=== PATIENT | female | born 1980 | race Caucasian/White ===

== ENCOUNTER → 2017-12-23 | Outpatient (CLI) | payer OTHER ==
--- NOTE | 2017-12-24 15:32 | US ---
EXAMINATION TYPE: US pelvis complete transvag DATE OF EXAM: 12/24/2017 COMPARISON: NONE CLINICAL HISTORY: N93.9 Abnormal uterine Bleeding. Patient states she had been bleeding consistently for about 1 month. TECHNIQUE: . Transabdominal sonographic images of the pelvis were acquired. Transvaginal sonographi c images were medically necessary to better assess the following anatomy: Endometrium and ovaries Date of LMP: 12/11/2017 EXAM MEASUREMENTS: Uterus: 8.5 x 4.2 x 4.9 cm Endometrial Stripe: 0.9 cm Right Ovary: 2.8 x 1.4 x 1.6 cm Left Ovary: 3.6 x 2.3 x 2.0 cm 1. Uterus: Anteverted Nabothian cyst visualized in cervix. Heterogeneous myometrium 2. Endometrium: Appears slightly heterogeneous 3. Right Ovary: Follicle visualized measuring 1.2 x 0.9 x 1.4 cm. Echogenic foci visualized measurin g 0.2 cm 4. Left Ovary: Complex area visualized measuring 1.8 x 1.3 x 1.8 cm. Follicle visualized measuring 1 .8 x 1.1 x 1.2 cm 5. Bilateral Adnexa: wnl 6. Posterior cul-de-sac: Tiny amount of free fluid visualized IMPRESSION: 1. Complex left ovarian lesion may reflect a hemorrhagic cyst. Consider follow-up study in 6 weeks. 2. Nonspecific heterogeneity uterine myometrial and endometrial lesions.
== END | disposition home or self-care (01) ==
LOC: RADUSWWP 14:50
PROVIDERS: ATTEND Family Medicine
DX: N83.8 Other noninflammatory disorders of ovary, fallopian tube and broad ligament (principal); N85.8 Other specified noninflammatory disorders of uterus; N93.9 Abnormal uterine and vaginal bleeding, unspecified
CPT/HCPCS: 76830; 76856

== ENCOUNTER → 2018-02-22 | Outpatient (CLI) | payer OTHER ==
--- NOTE | 2018-02-22 14:57 | US ---
EXAMINATION TYPE: US pelvis complete transvag DATE OF EXAM: 02/22/2018 COMPARISON: NONE CLINICAL HISTORY: N83.20 Previous Lt Ovarian Cyst. Previous left ovarian TECHNIQUE: Transvaginal (TV) and Transabdominal (TA) . Transabdominal sonographic images of the pel vis were acquired. Transvaginal sonographic images were medically necessary to better assess the fol lowing anatomy: Ovaries Date of LMP: 01/23/2018, EXAM MEASUREMENTS: Uterus: 9.1 x 5.4 x 3.9 cm Endometrial Stripe: 0.9 cm Right Ovary: 2.1 x 1.7 x 1.5 cm Left Ovary: 2.3 x 1.3 x 1.6 cm 1. Uterus: Anteverted wnl 2. Endometrium: wnl 3. Right Ovary: follicles seen 4. Left Ovary: follicles seen 5. Bilateral Adnexa: Cystic appearing lesion seen in right adnexa = 1.5 x 1.2 x 1.0 cm 6. Posterior cul-de-sac: free fluid Cervix= fluid seen in cervical canal IMPRESSION: 1. Probable functional ovarian cysts. This can be confirmed with the follow-up study in 6 weeks.
== END | disposition home or self-care (01) ==
LOC: RADUSWWP 13:11
PROVIDERS: ATTEND Obstetrics & Gynecology
DX: N83.202 Unspecified ovarian cyst, left side (principal)
CPT/HCPCS: 76830; 76856

== ENCOUNTER → 2018-07-20 | Outpatient (CLI) | payer BC, OTHER ==
--- NOTE | 2018-07-20 19:23 | US ---
EXAMINATION TYPE: US pelvic complete DATE OF EXAM: 07/20/2018 COMPARISON: Prior pelvic ultrasound 02/22/2018 CLINICAL HISTORY: N92.1 excessive bleeding with irregular cycle. Irregular bleeding. TECHNIQUE: Transabdominal (TA). Transabdominal sonographic images of the pelvis were acquired. EXAM MEASUREMENTS: Uterus: 8.7 x 4.4 x 6.0 cm Endometrial Stripe: 1.0 cm Right Ovary: 2.1 x 2.2 x 2.2 cm Left Ovary: 2.3 x 1.4 x1.4 cm 1. Uterus: Anteverted wnl 2. Endometrium: wnl 3. Right Ovary: Cystic area seen 2.1 x 2.2 x 1.3cm. Cystic focus shows some questionable wall thicke [place], is oblong in shape. 4. Left Ovary: wnl 5. Bilateral Adnexa: wnl 6. Posterior cul-de-sac: wnl IMPRESSION: Possible involuting right ovarian cyst.
== END | disposition home or self-care (01) ==
LOC: RADUSMAIN 17:50
PROVIDERS: ATTEND Obstetrics & Gynecology
DX: N92.1 Excessive and frequent menstruation with irregular cycle (principal)
CPT/HCPCS: 76856

== ENCOUNTER → 2018-07-21 | Outpatient (CLI) | payer BC, OTHER ==
[2018-07-21 18:09] LABS: Anisocytosis Slight; HCT 24.2 % (34.0-46.0); HGB 7.6 gm/dL (11.4-16.0); Hypochromasia Marked; MCH 24.2 pg (25.0-35.0); MCHC 31.4 g/dL (31.0-37.0); MCV 77.2 fL (80.0-100.0); Mean Platelet Volume 7.8; Microcytosis Slight; Platelet Count 252 k/uL (150-450); Poikilocytosis Slight; RBC 3.13 m/uL (3.80-5.40); RDW 16.8 % (11.5-15.5); WBC 3.7 k/uL (3.8-10.6)
[2018-07-21 23:02] LABS: T4, Free (Free Thyroxine) 1.1 ng/dL (0.80-1.80)
[2018-07-21 23:04] LABS: T3, Uptake 28 % (23-37)
[2018-07-21 23:07] LABS: Progesterone <0.2 ng/mL
== END | disposition home or self-care (01) ==
LOC: LABWHC1 12:11
PROVIDERS: ATTEND Obstetrics & Gynecology
DX: N93.8 Other specified abnormal uterine and vaginal bleeding (principal); Z13.29 Encounter for screening for other suspected endocrine disorder
CPT/HCPCS: 36415; 82670; 83001; 83002; 84144; 84146; 84439; 84443; 84479; 85027

== ENCOUNTER 2020-06-13 14:44 | Emergency (ER) | payer BC, OTHER ==
[2020-06-13 15:05] VITALS: RESP 18; TEMP 98.5
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
[2020-06-13 18:23] VITALS: BP 138/78; PULSE 80
== END 2020-06-13 18:23 | disposition home or self-care (01) ==
LOC: EC 14:44
DX: F43.20 Adjustment disorder, unspecified (principal)
CPT/HCPCS: 82075; 99284